=== PATIENT | female | born 1980 | race Caucasian/White ===

== ENCOUNTER → 2019-12-31 08:47 | Outpatient (CLI) | payer OTHER, SELFPAY ==
--- NOTE | ~2019-12-31 | MMUS_ITS ---
EXAMINATION: MM diagnostic mammo BI, US breast BI limited HISTORY: Bilateral breast masses on screening mammogram TECHNIQUE: Additional 3-D tomosynthesis images of the breasts were performed and synthetic 2-D images were generated. CAD analysis was submitted and interpreted. High resolution limited bilateral breast ultrasound was performed. COMPARISON: 12/18/2019, 11/08/2018, 03/19/2018 FINDINGS: MAMMOGRAPHIC FINDINGS: Right breast: There is an 8 mm x 7 mm oval, obscured, equal density mass in the anterior third of the inner breast at the 2:30 location 2 cm from the nipple. Left breast: There is a 1.6 x 0.9 cm oval, obscured, low density mass in the anterior third of the lo wer inner breast at the 7:00 location 2.5 cm from the nipple. ULTRASOUND: Right breast: There is a 7 mm round cyst at the 2:00 location adjacent to the nipple corresponding to the mammographic finding in question. No suspicious cystic or solid mass is identified. Left breast: Adjacent cysts measuring 17 mm x 8 mm and 3 mm x 2 mm account for the mammographic findi ng in question at the 6:00 location 3 cm from the nipple. No suspicious cystic or solid mass is ident ified. IMPRESSION: 1. Cysts of the breasts accounting for the findings on screening mammogram. No mammographic or sonogr aphic evidence of malignancy. 2. Recommend routine screening mammography in one year. BI-RADS Category 2: Benign finding(s). Reviewed, dictated and finalized at location A. 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 Cysts of the breasts accounting for the findings on screening mammogram. No mammographic or sonographic evidence of malignancy. 2. Recommend routine screening mammography in one year. BI-RADS Category 2: Benign finding(s).
== END ==
PROVIDERS: PCP Family Medicine; Visit Provider Nurse Practitioner Obstetrics & Gynecology
DX: R92.8 Other abnormal and inconclusive findings on diagnostic imaging of breast (principal)
CPT/HCPCS: 76642; 77066

== ENCOUNTER → 2021-01-04 12:37 | Outpatient (CLI) | payer OTHER, SELFPAY ==
--- NOTE | ~2021-01-04 | MM_ITS ---
EXAMINATION: MM screening [facility] BI w ariane HISTORY: Screening mammogram TECHNIQUE: Craniocaudal and mediolateral oblique 3-D tomosynthesis images were obtained and synthetic 2-D images were generated. Bilateral rotated lateral cc views. CAD analysis was submitted and interp reted. COMPARISON: December 31, 2019 bilateral diagnostic digital mammogram and Limited bilateral breast ultr asound 12/18/2019, 12/09/2017 bilateral digital screening mammogram BREAST PARENCHYMAL COMPOSITION: The breasts are heterogeneously dense, which may obscure small masses . FINDINGS: There is a 5 mm circumscribed opacity in the anterior mid inner right breast (craniocaudal Tomosynthesis image 42/81; MLO Tomosynthesis image 46/70) There is a 13 x 20 mm circumscribed opacity in the lower left breast (MLO Tomosynthesis image 27/70). Otherwise there is no evidence of suspicious mass, calcification, or architectural distortion to sugg est malignancy in either breast. There has been no other suspicious interval change. IMPRESSION: 1. Bilateral diagnostic mammography and bilateral breast ultrasound are recommended for bilateral huber ast masses. 2. Diagnostic bilateral mammogram and bilateral breast ultrasound examination are recommended.. BI-RADS Category 0: Incomplete: Needs additional imaging evaluation. Reviewed, dictated and finalized at location A. L OPERATIONS MANAGER IMPRESSION: 1. Bilateral diagnostic mammography and bilateral breast ultrasound are recomme nded for bilateral breast masses. 2. Diagnostic bilateral mammogram and bilateral breast ultrasound examination a re recommended.. BI-RADS Category 0: Incomplete: Needs additional imaging evaluation.
== END ==
PROVIDERS: PCP Family Medicine; Visit Provider Nurse Practitioner Obstetrics & Gynecology
DX: Z12.31 Encounter for screening mammogram for malignant neoplasm of breast (principal); R92.8 Other abnormal and inconclusive findings on diagnostic imaging of breast
CPT/HCPCS: 77063; 77067

== ENCOUNTER → 2021-01-26 08:50 | Outpatient (CLI) | payer OTHER, SELFPAY ==
--- NOTE | ~2021-01-26 | MMUS_ITS ---
EXAMINATION: MM diagnostic mammo BI, US breast BI complete HISTORY: Bilateral breast masses TECHNIQUE: Additional 3-D tomosynthesis images of the breasts were performed and synthetic 2-D images were generated. CAD analysis was submitted and interpreted. High resolution complete bilateral breas t ultrasound was performed. COMPARISON: Comparison to multiple prior studies sequentially, with oldest reviewed study dated 03/19. BREAST PARENCHYMAL COMPOSITION: The breasts are heterogenously dense, which may obscure small masses. FINDINGS: MAMMOGRAPHIC FINDINGS: There is a 6 mm mass in the subareolar location of the right breast. There is a stable mass in the lo wer inner quadrant of the left breast measuring approximately 2 cm. Right breast ultrasound: There are multiple cysts of the right breast, largest cluster of cysts measu res 8 mm at 11:00 near the areola likely corresponding to the mammographic finding. Left breast ultrasound: At 2:00, 5 cm from the nipple, there is a 7 mm intramammary lymph node. There is a cyst at 6:00, 3 cm from the nipple measuring 2.1 cm corresponding to the mass. There is an tawana cent 3 mm cyst. No sonographic evidence for malignancy in either breast. IMPRESSION: 1. No evidence for malignancy in either breast. Benign findings. 2. Routine yearly screening mammogram and regular clinical breast examination are recommended. BI-RADS Category 2: Benign finding(s). Reviewed, dictated and finalized at location A. 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 No evidence for malignancy in either breast. Benign findings. 2. Routine yearly screening mammogram and regular clinical breast examination a re recommended. BI-RADS Category 2: Benign finding(s).
== END ==
PROVIDERS: PCP Family Medicine; Visit Provider Nurse Practitioner Obstetrics & Gynecology
DX: R92.8 Other abnormal and inconclusive findings on diagnostic imaging of breast (principal)
CPT/HCPCS: 76641; 77066

== ENCOUNTER → 2022-01-27 10:07 | Outpatient (CLI) | payer OTHER, SELFPAY ==
--- NOTE | ~2022-01-27 | MM_ITS ---
EXAMINATION: MM screening [facility] BI w ariane HISTORY: Screening mammogram TECHNIQUE: Craniocaudal and mediolateral oblique 3-D tomosynthesis images were obtained and synthetic 2-D images were generated. CAD analysis was submitted and interpreted. COMPARISON: 01/26/2021, 01/04/2021, 12/31/2019, 12/18/2019 BREAST PARENCHYMAL COMPOSITION: The breasts are heterogeneously dense, which may obscure small masses . FINDINGS: There is a cyst of the left breast at the 6:00 location. There is no evidence of suspicious mass, calcification, or architectural distortion to suggest malignancy in either breast. There has b een no suspicious interval change. IMPRESSION: 1. No mammographic evidence of malignancy. 2. Recommend routine screening mammography in one year. BI-RADS Category 2: Benign finding(s). Reviewed, dictated and finalized at location A. KEY REGAUGER
== END ==
PROVIDERS: PCP Family Medicine; Visit Provider Nurse Practitioner Obstetrics & Gynecology
DX: Z12.31 Encounter for screening mammogram for malignant neoplasm of breast (principal)
CPT/HCPCS: 77063; 77067

== ENCOUNTER → 2023-04-06 11:05 | Outpatient (CLI) | payer OTHER, SELFPAY ==
--- NOTE | ~2023-04-06 | MM_ITS ---
EXAMINATION: MM screening [facility] BI w ariane HISTORY: Screening mammogram TECHNIQUE: Craniocaudal and mediolateral oblique 3-D tomosynthesis images were obtained and synthetic 2-D images were generated. CAD analysis was submitted and interpreted. COMPARISON: 01/27/2022, 01/26/2021, 01/04/2021, 12/31/2019 BREAST PARENCHYMAL COMPOSITION: The breasts are heterogeneously dense, which may obscure small masses . FINDINGS: Bilateral breast cysts are noted. No suspicious mass, calcification, or architectural disto rtion are identified in either breast to suggest malignancy. There has been no suspicious interval ch partha. IMPRESSION: 1. No mammographic evidence of malignancy. 2. Recommend routine screening mammography in one year. BI-RADS Category 2: Benign finding(s). Reviewed, dictated and finalized at location A.
== END ==
PROVIDERS: PCP Family Medicine; Visit Provider Nurse Practitioner Obstetrics & Gynecology
DX: Z12.31 Encounter for screening mammogram for malignant neoplasm of breast (principal)
CPT/HCPCS: 77063; 77067

== ENCOUNTER 2023-05-04 08:56 | Emergency (ER) | payer OTHER, SELFPAY ==
--- NOTE | 2023-05-04 08:58 | ED.LOWEXIN ---
HPI - Extremity Injury (Lower) General Chief Complaint: Extremity Injury, Lower Stated Complaint: fall/lt ankle injury Time Seen by Provider: 05/04/23 08:58 Source: patient Mode of arrival: ambulatory Limitations: no limitations History of Present Illness HPI Narrative: Cassia is a 42-year-old female patient presenting to clinic today with complaints of left foot pain/injury after a fall. She reports she was walking down some steps while reading a book yesterday and missed the last step and ended up stepping on the side of her foot and this caused her to fall landing on top of her foot. She reports pain and swelling to the top of the proximal foot. Pain with flexion of the foot as well as walking Related Data Home Medications Medication Instructions Recorded Confirmed cholecalciferol (vitamin D3) 25 25 mcg PO DAILY 02/06/23 05/04/23 mcg (1,000 unit) capsule xnwwbhjtuzic-Wi-isdy-minerals 18 1 tablet PO DAILY 02/06/23 02/06/23 mg-0.4 mg tablet Allergies Allergy/AdvReac Type Severity Reaction Status Date / Time Penicillins Allergy Unknown HIVES Verified 05/04/23 09:17 Sulfa (Sulfonamide Allergy Unknown HIVES Verified 05/04/23 09:17 Antibiotics) Contrast Media Allergy Unknown RASH Uncoded 05/04/23 09:17 Review of Systems Review of Systems: Pertinent positives per HPI. Patient denies any fever, chills, rash, headache, visual changes, dizziness, cough, runny nose, sore throat, shortness of breath, chest pain, palpitations, nausea, vomiting, diarrhea, constipation, abdominal pain, or any urinary issues. [facility] Past Medical History Medical History Generalized anxiety disorder Hypertension Social History Social History Smoking status: Former smoker Tobacco type: cigarettes Second hand tobacco smoke exposure: No Alcohol intake: never Substance use: never Substance use type: does not use Lack of Transportation: No Lack of Food: Never True Current Housing: I Have Housing Concerned About Future Housing: No Difficulty Paying Gas/Electric Bills: No Difficulty Paying for Meds: No Currently Unemployed: YES Difficulty w/ Childcare or Family Care: No Living arrangements: with family Occupation/Education: other Gender identity (if verbalized by the patient): Female Sexual Orientation (if Verbalized by the Patient): Straight or Heterosexual Spiritual care concerns: No Comments At the time of my signature, I reviewed and agree with the nursing past medical, surgical, social, and family history. There is no relevant family history pertinent to the patient complaint. Exam Narrative: General: Well-developed, well nourished, in no apparent distress Head: Normocephalic, atraumatic. Cardio: Regular rate and rhythm, s1 and s2 normal, no murmur appreciated. Resp: Clear to auscultation bilaterally, no rhonchi, rales, wheezing or rubs. Musculoskeletal: No deformity, mild swelling noted to the proximal foot and ankle tender to palpation to the left anterior, medial, and lateral proximal foot, pain with plantar flexion over the proximal foot, grossly normal range of motion, muscle strength strong and equal, peripheral pulse strong, no cyanosis, limping gait and station Course Course Emergency Course: Portions of this record may have been created with voice recognition software. Level of Care: Express Care Visit Vital Signs Vital signs: Vital signs reviewed MDM - Extremity Injury (Lower) MDM Narrative Medical decision making narrative: At the time of visit patient is resting comfortably on the exam table. X-ray of the left foot was performed and was negative for any sign of fracture or malalignment. I suspect patient has a left foot sprain. Supportive measures were discussed with the patient and she voiced understanding discharge instructions and a
[2023-05-04 09:05] VITALS: BP 145/70; PULSE 73; RESP 18; TEMP 36.6; O2SAT 100
== END 2023-05-04 09:25 | disposition home or self-care (01) ==
PROVIDERS: Emergency Provider Nurse Practitioner Family; PCP Family Medicine
DX: S93.602A Unspecified sprain of left foot, initial encounter (principal); W10.9XXA Fall (on) (from) unspecified stairs and steps, initial encounter; I10 Essential (primary) hypertension; Z87.891 Personal history of nicotine dependence
CPT/HCPCS: 73630; 99213; G0463

== ENCOUNTER 2024-03-19 08:26 | Day surgery (SDC) | payer OTHER, SELFPAY ==
[2024-02-12 11:08] VITALS: BMI 21.9
--- NOTE | 2024-03-18 14:15 | PM.HPGS ---
History of Present Illness History of Present Illness Consent: Risks, benefits, and alternatives have been discussed and questions answered. Patient agrees to proceed with procedure. Chief complaint: Neoplasm Screening Narrative: Cassia Law is a 43 year old female referred for colon cancer screening. 2 grandparents had colon cancer. Review of Systems Review of Systems: All systems reviewed & are unremarkable except as noted in HPI and below PMFSH Past Medical History Medical History Generalized anxiety disorder Hypertension SVT (supraventricular tachycardia) in 3rd grade Surgical History Surgical History Hx of removal of thyroglossal duct cyst 2010 Family History Family History Grandparent , from colon cancer Carcinoma of colon Grandparent Carcinoma of colon Social History Social History Smoking status: Former smoker Tobacco type: cigarettes Second hand tobacco smoke exposure: No Alcohol intake: never Substance use: never Substance use type: does not use Do You Feel Safe in your Home?: Yes Lack of Transportation: No Lack of Food: Never True Current Housing: I Have Housing Concerned About Future Housing: No Difficulty Paying Gas/Electric Bills: No Difficulty Paying for Meds: No Currently Unemployed: YES Education: Bachelor's Degree Difficulty w/ Childcare or Family Care: No Living arrangements: with family Occupation/Education: other Gender identity (if verbalized by the patient): Female Sexual Orientation (if Verbalized by the Patient): Straight or Heterosexual Spiritual care concerns: No Meds Home Medications and Allergies Home Medications Medication Instructions Recorded Confirmed Type cholecalciferol (vitamin D3) 25 25 mcg PO DAILY 02/06/23 03/19/24 History mcg (1,000 unit) capsule qymctehwptkp-Jf-jmhg-minerals 18 1 tablet PO DAILY 02/06/23 03/19/24 History mg-0.4 mg tablet escitalopram oxalate 10 mg tablet 10 mg PO DAILY #90 tabs 01/22/24 03/19/24 Rx lisinopril 10 mg tablet 10 mg PO DAILY #90 tabs 03/14/24 04/23/24 Rx montelukast 10 mg tablet 10 mg PO DAILY #60 tabs 02/16/24 03/19/24 Rx Allergies Allergy/AdvReac Type Severity Reaction Status Date / Time Penicillins Allergy Unknown HIVES Verified 03/19/24 09:45 Sulfa (Sulfonamide Allergy Unknown HIVES Verified 03/19/24 09:45 Antibiotics) Contrast Media Allergy Unknown RASH Uncoded 03/19/24 09:45 Exam Const: General: alert Orientation/consciousness: patient oriented x3 Resp: Auscultation: clear to auscultation bilaterally Cardio: Rhythm: regular rhythm GI: GI Palp: Yes Soft to palpation and No Tenderness to palpation present (GI) Neuro: General: patient oriented x3 Assessment and Plan Assessment and plan (1) Colon cancer screening: Code(s): Z12.11 - Encounter for screening for malignant neoplasm of colon Status: Acute Assessment and Plan: Colonoscopy with possible biopsy or polypectomy or cautery or injection of substances.
--- NOTE | 2024-03-19 07:36 | P.PNAN_ITS ---
Anes - Initial Pre Proc Eval Procedure: Operation Date: 03/19/24 11:00 Proposed Procedures p Screening Colonoscopy - Valente Taylor MD Date/Time: 03/19/24 07:36 Surgeon: Valente Taylor MD Pre Op Diagnosis: Neoplasm Screening Patient Data Age: 43 Gender: F Height: 1.75 m Weight: 67.585 kg Allergies Allergy/AdvReac Type Severity Reaction Status Date / Time Penicillins Allergy Unknown HIVES Verified 03/19/24 09:45 Sulfa (Sulfonamide Allergy Unknown HIVES Verified 03/19/24 09:45 Antibiotics) Contrast Media Allergy Unknown RASH Uncoded 03/19/24 09:45 Home Medications Medication Instructions Recorded Confirmed Type cholecalciferol (vitamin D3) 25 25 mcg PO DAILY 02/06/23 03/19/24 History mcg (1,000 unit) capsule jbzmcwelcioq-Vh-alxh-minerals 18 1 tablet PO DAILY 02/06/23 03/19/24 History mg-0.4 mg tablet escitalopram oxalate 10 mg tablet 10 mg PO DAILY #90 tabs 01/22/24 03/19/24 Rx lisinopril 10 mg tablet 10 mg PO DAILY #90 tabs 02/08/24 03/19/24 Rx montelukast 10 mg tablet 10 mg PO DAILY #60 tabs 02/16/24 03/19/24 Rx Patient hx anesthesia problems: none Family hx anesthesia problems: none Results Review: All pre-operative results and documents have been reviewed as part of the pre- operative evaluation. [facility] Past Medical History Medical History Generalized anxiety disorder Hypertension SVT (supraventricular tachycardia) in 3rd grade Surgical History Surgical History Hx of removal of thyroglossal duct cyst 2010 Family History Family History Grandparent , from colon cancer Carcinoma of colon Grandparent Carcinoma of colon Social History Social History Smoking status: Former smoker Tobacco type: cigarettes Second hand tobacco smoke exposure: No Alcohol intake: never Substance use: never Substance use type: does not use Do You Feel Safe in your Home?: Yes Lack of Transportation: No Lack of Food: Never True Current Housing: I Have Housing Concerned About Future Housing: No Difficulty Paying Gas/Electric Bills: No Difficulty Paying for Meds: No Currently Unemployed: YES Education: Bachelor's Degree Difficulty w/ Childcare or Family Care: No Living arrangements: with family Occupation/Education: other Gender identity (if verbalized by the patient): Female Sexual Orientation (if Verbalized by the Patient): Straight or Heterosexual Spiritual care concerns: No Anes - Eval Final PreProcedure Day of Procedure 03/19/24 07:36 Patient weight: normal Heart: regular rate and rhythm Lungs: clear to auscultation and normal air movement Airway: Mallampati scale class II Neurological: alert and oriented Last oral intake: >/= 8 hours ASA classification: II Emergent: no Anesthetic plan: proceed Anesthesia type and monitoring: general GIVS and standard monitoring Results Review: All pre-operative results and documents have been reviewed as part of the pre- operative evaluation. Informed Consent: The patient's anesthetic plan and its attendant risks and benefits were discussed with the patient/family/POA. Questions were solicited and answers provided to the satisfaction of the patient/family/POA.
[2024-03-19 09:58] VITALS: BP 122/84; PULSE 84; RESP 16; TEMP 37.4; O2SAT 100; BMI 20.7
[2024-03-19] MEDS: LACTATED RINGERS 1,000 ML 150 ML IV CONT (10:15)
[2024-03-19 11:11] VITALS: BP 103/79; PULSE 82; RESP 16; O2SAT 100
[2024-03-19 11:21] VITALS: BP 113/71; PULSE 70; RESP 17; O2SAT 96
[2024-03-19 11:31] VITALS: BP 110/70; PULSE 70; RESP 16; O2SAT 98
--- NOTE | 2024-03-19 12:24 | WPDANESPN ---
Anes - Prog Note Post-Op Date/Time: 03/19/24 12:24 Cardiovascular status: normal Respiratory status: normal Airway patency: baseline Mental status: baseline Post-Op hydration status: normal Vital Signs: Last Vital Signs Temp 37.4 C 03/19/24 09:58 Pulse 70 03/19/24 11:31 Resp 16 03/19/24 11:31 BP 110/70 03/19/24 11:31 Pulse Ox 98 03/19/24 11:31 O2 Del Method Room Air 03/19/24 11:31 Pain Score (VAS): 0 I/O: Intake & Output 03/18/24 03/19/24 03/19/24 23:59 07:59 15:59 Intake Total 400 Balance 400 Post-procedural complaints: none Patient Feedback: Patient satisfied with anesthetic care. Other Findings: Patient vital signs back to baseline. Patient denies nausea and vomiting. Patient's pain under control. Patient OK for discharge.
== END 2024-03-19 11:49 | disposition home or self-care (01) ==
PROVIDERS: PCP Family Medicine; Visit Provider Internal Medicine Gastroenterology
PROC: 0DJD8ZZ Inspection of Lower Intestinal Tract, Via Natural or Artificial Opening Endoscopic (ICD-10-PCS; CPT 45378; principal; 2024-03-19 11:00)
DX: Z12.11 Encounter for screening for malignant neoplasm of colon (principal); Z80.0 Family history of malignant neoplasm of digestive organs
CPT/HCPCS: 45378

== ENCOUNTER 2024-05-28 15:34 | Outpatient (CLI) | payer OTHER, SELFPAY ==
--- NOTE | ~2024-05-28 | MM_ITS ---
EXAMINATION: MM screening [facility] BI w ariane HISTORY: Screening mammogram TECHNIQUE: Craniocaudal and mediolateral oblique 3-D tomosynthesis images were obtained and synthetic 2-D images were generated. CAD analysis was submitted and interpreted. COMPARISON: 04/06/2023, 01/27/2022, 01/26/2021 BREAST PARENCHYMAL COMPOSITION:Not Dense. There are scattered areas of fibroglandular density. FINDINGS: Bilateral low-density masses are again present, compatible with breast cysts. No suspicious mass, calcification, or architectural distortion are identified in either breast to suggest malignan cy. There has been no suspicious interval change. IMPRESSION: No mammographic evidence of malignancy. Recommend routine screening mammography in one year. BI-RADS Category 2: Benign finding(s). Reviewed, dictated and finalized at [facility].
== END 2024-05-28 15:35 ==
LOC: MICIMG 15:35
PROVIDERS: PCP Family Medicine; Visit Provider Nurse Practitioner Obstetrics & Gynecology
DX: Z12.31 Encounter for screening mammogram for malignant neoplasm of breast (principal)
CPT/HCPCS: 77063; 77067

== ENCOUNTER 2024-08-28 08:17 | Outpatient (CLI) | payer OTHER, SELFPAY ==
--- NOTE | ~2024-08-28 | MMUS_ITS ---
EXAMINATION: MM diagnostic kelsie RT w ariane, US breast RT limited HISTORY: Palpable right breast mass TECHNIQUE: Additional 3-D tomosynthesis images of the right breast were performed and synthetic 2-D i mages were generated. CAD analysis was submitted and interpreted. High resolution Limited right breas t ultrasound was performed. COMPARISON: Comparison to multiple prior studies sequentially, with oldest reviewed study dated 02/2020. BREAST PARENCHYMAL COMPOSITION: Not dense: There are scattered areas of fibroglandular density. FINDINGS: MAMMOGRAPHIC FINDINGS: There is a partially obscured mass in the subareolar location the right breast, anterior-, mid depth. There are no suspicious calcifications or architectural distortion. ULTRASOUND: Limited right breast ultrasound: At 12:00 in the area palpable concern near the nipple there is a lar ge cyst measuring 3.1 x 2.6 x 1.3 cm corresponding to the mammographic and palpable finding. No suspi cious masses. IMPRESSION: 1. No evidence for malignancy in the right breast. Benign finding. 2. . Routine yearly screening mammogram and regular clinical breast examination are recommended. BI-RADS Category 2: Benign finding(s). Reviewed, dictated and finalized at location B. IMPRESSION: 1. No evidence for malignancy in the right breast. Benign finding. 2. . Routine yearly screening mammogram and regular clinical breast examination are recommended. BI-RADS Category 2: Benign finding(s).
== END 2024-08-28 08:18 | disposition home or self-care (01) ==
PROVIDERS: PCP Family Medicine; Visit Provider Obstetrics & Gynecology
DX: N63.41 Unspecified lump in right breast, subareolar (principal)
CPT/HCPCS: 76642; 77061; 77065; G0279